=== PATIENT | male | born 1955 | race Caucasian/White ===

== ENCOUNTER 2024-12-30 12:51 | Outpatient (REF) | payer MEDICARE, SELFPAY ==
--- NOTE | ~2024-12-30 | US_ITS ---
EXAMINATION: US RETROPERITONEAL LIMITED (RENAL ONLY) CLINICAL INFORMATION: Stage IV CKD. COMPARISON: None available. TECHNIQUE: Ultrasound along with color Doppler imaging and spectral analysis was performed of the kidneys. FINDINGS: RENAL MEASUREMENTS: Right: 10.9 x 5.5 x 4.4 cm (Sag x AP x TV); there are multiple simple cysts present, largest in the midpole measuring 2.0 x 1.9 x 2.0 cm. There is echogenic renal cortex. No hydronephrosis, mass, or calculus. Left: 12.0 x 5.3 x 5.0 cm (Sag x AP x TV); there are multiple simple cysts present, largest in the upper pole measuring 2.8 x 2.7 x 2.7 cm. There is echogenic renal cortex. No hydronephrosis, mass, or calculus. Spectral Doppler analysis: Right Kidney: -Peak systolic velocity in the proximal right renal artery = 91 cm/s. Normal waveforms. -Peak systolic velocity in the mid right renal artery = 88 cm/s. Normal waveforms. -Peak systolic velocity in the distal right renal artery = 90 cm/s. Normal waveforms. -Patent right renal vein. -Upper pole interlobar artery resistive index of 0.65. -Midpole interlobar artery resistive index of 0.65. -Lower pole interlobar artery resistive index of 0.66. RAR right = unable to calculate. Left Kidney: -Peak systolic velocity in the proximal left renal artery = 104 cm/s. Normal waveforms. -Peak systolic velocity in the mid left renal artery = 71 cm/s. Normal waveforms. -Peak systolic velocity in the distal left renal artery = 33 cm/s. Normal waveforms. -Patent left renal vein. -Upper pole interlobar artery resistive index of 0.67. -Mid pole interlobar artery resistive index of 0.68. -lower pole interlobar artery resistive index of 0.71. RAR left = unable to calculate. Aorta: -Peak systolic velocity = 108 cm/s. US/US renal doppler IMPRESSION: 1. No evidence of renal artery stenosis or abnormal waveforms bilaterally on color/spectral Doppler examination (based on peak systolic velocities and resistive indices). 2. There are bilateral renal cysts. There is echogenic renal cortex in keeping with chronic renal disease. There is no hydronephrosis. Electronically signed by: Durga Pinedo MD 12/30/2024 01:48 PM [facility]
--- NOTE | ~2024-12-30 | US_ITS ---
EXAMINATION: US RETROPERITONEAL LIMITED (RENAL ONLY) CLINICAL INFORMATION: Stage IV CKD. COMPARISON: None available. TECHNIQUE: Ultrasound along with color Doppler imaging and spectral analysis was performed of the kidneys. FINDINGS: RENAL MEASUREMENTS: Right: 10.9 x 5.5 x 4.4 cm (Sag x AP x TV); there are multiple simple cysts present, largest in the midpole measuring 2.0 x 1.9 x 2.0 cm. There is echogenic renal cortex. No hydronephrosis, mass, or calculus. Left: 12.0 x 5.3 x 5.0 cm (Sag x AP x TV); there are multiple simple cysts present, largest in the upper pole measuring 2.8 x 2.7 x 2.7 cm. There is echogenic renal cortex. No hydronephrosis, mass, or calculus. Spectral Doppler analysis: Right Kidney: -Peak systolic velocity in the proximal right renal artery = 91 cm/s. Normal waveforms. -Peak systolic velocity in the mid right renal artery = 88 cm/s. Normal waveforms. -Peak systolic velocity in the distal right renal artery = 90 cm/s. Normal waveforms. -Patent right renal vein. -Upper pole interlobar artery resistive index of 0.65. -Midpole interlobar artery resistive index of 0.65. -Lower pole interlobar artery resistive index of 0.66. RAR right = unable to calculate. Left Kidney: -Peak systolic velocity in the proximal left renal artery = 104 cm/s. Normal waveforms. -Peak systolic velocity in the mid left renal artery = 71 cm/s. Normal waveforms. -Peak systolic velocity in the distal left renal artery = 33 cm/s. Normal waveforms. -Patent left renal vein. -Upper pole interlobar artery resistive index of 0.67. -Mid pole interlobar artery resistive index of 0.68. -lower pole interlobar artery resistive index of 0.71. RAR left = unable to calculate. Aorta: -Peak systolic velocity = 108 cm/s. US/US renal BI IMPRESSION: 1. No evidence of renal artery stenosis or abnormal waveforms bilaterally on color/spectral Doppler examination (based on peak systolic velocities and resistive indices). 2. There are bilateral renal cysts. There is echogenic renal cortex in keeping with chronic renal disease. There is no hydronephrosis. Electronically signed by: Durga Pinedo MD 12/30/2024 01:48 PM [facility] [place] [place]
--- OUTSIDE RECORDS SUMMARY | 2024-12-30 14:59 | XMS_ITS | Clinical Summary ---
Author Organization [facility] Address [address] [place] [address] Phone Care Team Providers Care Properties Supervisor Name Role Phone Joby Olivares MD Primary Care Provider [phone] Allergies Active Allergy Reactions Criticality Noted Date Comments Levofloxacin Other (see comments) 01/30/2021 Medications Cholecalcifero l 50 MCG (1999) capsule Take 1 capsule by mouth 1 (one) time each day Active escitalopram (LEXAPRO) 20 MG tablet Take 10 mg by mouth 1 (one) time each day Active oxyCODONE-acet aminophen (PERCOCET) 5-325 MG per tablet 1 Active citric acid-potassium citrate (POLYCITRA) 1100-334 MG/5ML solution Take 15 mL (30 mEq total) by mouth 2 (two) times a day 2700 mL 2 1 Active Additional Information Patient not taking.Reported on 03/28/2024 Multiple Vitamin (multivitamin) tablet Take 1 tablet by mouth 1 (one) time each day Active carvedilol (COREG) 12.5 MG tablet TAKE 1 TABLET BY MOUTH TWICE A DAY 180 tablet 5 4 Active b complex vitamins capsule Take 1 capsule by mouth 1 (one) time each day Active spironolactone (ALDACTONE) 25 MG tablet Take 25 mg by mouth 1 12/09/19 25 Discontin ued(Alter jossie therapy) amLODIPine (NORVASC) 10 MG tablet TAKE 1 TABLET BY MOUTH EVERY DAY 90 tablet 3 5 12/09/19 25 Discontin ued(Alter jossie therapy) lisinopril 10 MG tablet TAKE 1 TABLET BY MOUTH 1 TIME EACH DAY. 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 Chronic kidney disease, stage 2 (mild) 3 Impaired fasting glycemia 04/30/2022 Chronic fatigue syndrome 08/01/2021 Irritable bowel syndrome 08/01/2021 Pain of knee region 08/01/2021 Stage 3b chronic kidney disease 08/01/2021 Renal osteodystrophy 08/01/2021 Stage 3a chronic kidney disease 01/31/2021 Obese class I 01/30/2021 Renal stone 01/30/2021 Hypertensive heart disease without heart failure 01/30/2021 Essential hypertension 01/30/2021 Chronic kidney disease stage 3 01/30/2021 Hypertensive renal disease 01/30/2021 Encounters Date Type Department Care Team Description 12/08/2024 3:00 PM EDT [facility] Visit [facility] [address] [address] Akbar Dorantes MD Chronic kidney disease, stage 4 (severe) (HCC) (Primary Dx); Renal osteodystrophy 11/03/2024 Refill [facility] [address] [address] Akbar Dorantes MD 10/10/2024 2:45 PM EDT Office Visit [facility] [address] [place] [address] [place] [phone] Akbar Dorantes MD Chronic kidney disease, stage 4 (severe) (HCC) (Primary Dx); Renal osteodystrophy; Hypertensive renal disease from Last 3 Months Immunizations Immunization Administration Dates Next Due DT 08/28/2008 Pfizer SARS-COV-2 12/03/2020,05/21/2020,04/30/19 21 Pneumococcal Polysaccharide 11/21/2001 Td, Unspecified 08/14/2000 Tdap 01/16/2016 Family History Medical History Relation Comments Cancer Father lung Diabetes Father Cancer Mother colon Relation Status Comments Father Mother Social History Tobacco Use Types Packs/Day Years Used Date Smoking Tobacco: Former Cigarettes Q uit: 02/23/1982 Passive Smoke Exposure: Never Smokeless Tobacco: Never Tobacco Cessation:Counseling Given: No Comments:Smoking History Info:Every day Alcohol Use Standard Drinks/Week Comments No 0 (1 standard drink = 0.6 oz pur e alcohol) Sex and Gender Information Value Date Recorded Sex Assigned at Not on file Legal Sex Male 5:12 PM EST Gender Identity Not on file Sexual Orientation Not on file Last Filed Vital Signs Vital Sign Reading Time Taken Comments Blood Pressure 132/84 03/28/2024 3:11 PM EST Pulse 78 08/07/2022 3:58 PM EDT Temperature - - Respiratory Rate - - Oxygen Saturation 96% 08/07/2022 3:58 PM EDT Inhaled Oxygen Concentration - - Weight 108 kg (238 lb) 08/07/2022 3:58 PM EDT Height 190.5 cm (6' 3 ) 02/10/2019 12:00 PM EST Body Mass Index 29.75 02/10/2019 12:00 PM EST Plan of Treatment Upcoming Encounters Date Type Department Care Team (Late st Contact Info) Description 01/02/2025 1:30 PM EST Office [facility] [address] [place] [address] Akbar Dorantes MD [address] [place] [address] Health Maintenance Due Date Last Done Comments Colorectal Cancer Screening: Annual FOBT 2002 Colorectal Cancer Screening: Colonoscopy 2002 Colorectal Cancer Screening: Sigmoidoscopy 2002 Pneumococcal Vaccine: 50+ Ye ars (2 of 2 - PCV) 11/21/2002 11/21/2001 Influenza Vaccine (#1) 2024 Pneumococcal Vaccine: Peds ( 0 to 5 Years) and At-Risk Patients (6 to 49 Years) Discontinued 11/21/2001 Hepatitis B Vaccine Aged Out No longe r eligible based on patient's age to complete this topic Procedures Procedure Name Priority Date/Time Associated Diagnosis Comments PROTIME-INR Routine 12/12/2024 10:53 AM EDT Chronic kidney disease, stage 4 (severe) (HCC) Renal osteodystrophy CBC Routine 12/12/2024 10:53 AM EDT Chronic kidney disease, stage 4 (severe) (HCC) Renal osteodystrophy C4 COMPLEMENT Routine 12/12/2024 10:53 AM EDT Chronic kidney disease, stage 4 (severe) (HCC) Renal osteodystrophy C3 COMPLEMENT Routine 12/12/2024 10:53 AM EDT Chronic kidney disease, stage 4 (severe) (HCC) Renal osteodystrophy JU PANEL Routine 12/12/2024 10:53 AM EDT Chronic kidney disease, stage 4 (severe) (HCC) Renal osteodystrophy HEPATITIS B CORE ANTIBODY, IGM Routine 12/12/2024 10:53 AM EDT Chronic kidney disease, stage 4 (severe) (HCC) Renal osteodystrophy HEPATITIS C ANTIBODY Routine 12/12/2024 10:53 AM EDT Chronic kidney disease, stage 4 (severe) (HCC) Renal osteodystrophy HEPATITIS B SURFACE ANTIGEN Routine 12/12/2024 10:53 AM EDT Chronic kidney disease, stage 4 (severe) (HCC) Renal osteodystrophy HEPATITIS B SURFACE ANTIBODY QUANT Routine 12/12/2024 10:53 AM EDT Chronic kidney disease, stage 4 (severe) (HCC) Renal osteodystrophy KAPPA/LAMBDA FREE LT CHAINS W/RATIO Routine 12/12/2024 10:53 AM EDT Chronic kidney disease, stage 4 (severe) (HCC) Renal osteodystrophy PROTEIN ELECTROPHORESIS, SERUM Routine 12/12/2024 10:53 AM EDT Chronic kidney disease, stage 4 (severe) (HCC) Renal osteodystrophy PROTEIN / CREATININE RATIO, URINE Routine 12/12/2024 10:53 AM EDT Chronic kidney disease, stage 4 (severe) (HCC) Renal osteodystrophy URINE ALBUMIN / CREATININE RATIO Routine 12/12/2024 10:53 AM EDT Chronic kidney disease, stage 4 (severe) (HCC) Renal osteodystrophy URINALYSIS WITH MICROSCOPIC Routine 12/12/2024 10:53 AM EDT Chronic kidney disease, stage 4 (severe) (HCC) Renal osteodystrophy RENAL FUNCTION PANEL Routine 12/12/2024 10:53 AM EDT Chronic kidney disease, stage 4 (severe) (HCC) Renal osteodystrophy MICROSCOPIC EXAMINATION - DO NOT USE Routine 12/12/2024 10:53 AM EDT PROTIME-INR Routine 10/03/2024 12:30 PM EDT Stage 3 chronic kidney disease, not otherwise specified (HCC) RENAL FUNCTION PANEL Routine 10/03/2024 12:30 PM EDT Stage 3 chronic kidney disease, not otherwise specified (HCC) from Last 3 Months Results * Microscopic Examination (12/12/2024 10:53 AM EDT) WBC, Urine None seen 0 - 5 /hpf [facility] RBC, Urine None seen 0 - 2 /hpf [facility] Squamous Epithelial, Urine 0-10 0 - 10 /hpf [facility] Casts None seen None seen /lpf [facility] Bacteria, Urine None seen None seen/Few [facility] 12/12/2024 10:5 3 AM EDT 12/12/2024 Akbar Dorantes MD LAB MICROBIOLOGY - GENERAL OR DERABLES Final Result Performing Organization Address City/[facility]/ZIP Co de Phone Number [employer] [facility] [facility] [address] [place] [address] * Hepatitis C antibody (12/12/2024 10:53 AM EDT) Hep C Virus Ab Non Reactive Non Reactive [facility] [phone] Comment: HCV antibody alone does not differentiate between previously resolved infection and active infection. Equivocal and Reactive HCV antibody results should be followed up with an HCV RNA test to support the diagnosis of active HCV infection. Blood Venous blood / Unknown 12/12/2024 10:53 AM EDT 12/12/2024 Akbar Dorantes MD LAB BLOOD ORDERABLES Final Re sult Performing Organization Address [facility] [[email or web address]] Co de Phone Number [employer] [place] [address], [address] [place] [address] * (ABNORMAL) Protein, Total, Random Urine w/Creatinine (Protein/Creat Ratio) (12/12/2024 10:53 AM EDT) Creatinine, Ur 162.1 Not Estab. mg/dL [facility] Protein, Ur 52.9 Not Estab. mg/dL [facility] Urine Protein/Creati nine Ratio 326(H) 0 - 200 mg/g creat [facility] Urine Urine specimen obtained by clean catch procedure / Unknown 12/12/2024 10:53 AM EDT 12/12/2024 Akbar Dorantes MD LAB URINE ORDERABLES Final Re sult Performing Organization Address City/[facility]/ZIP Co de Phone Number [employer] [facility] [address] [place] [address] * (ABNORMAL) Arkwright/Lambda free LT chains w/ratio, Serum (12/12/2024 10:53 AM EDT) Pathologist [facility] Free Arkwright Lt Chains, S 38.9(H) 3.3 - 19.4 mg/L [facility] Free Lambda Lt Chains, S 65.9(H) 5.7 - 26.3 mg/L [facility] Free Arkwright/Lambda Ratio 0.59 0.26 - 1.65 [facility] Blood Venous blood / Unknown 12/12/2024 10:53 AM EDT 12/12/2024 Akbar Dorantes MD LAB BLOOD ORDERABLES Final Re sult Performing Organization Address [facility] [[email or web address]] Co de Phone Number [facility] [address] [place] [address] * (ABNORMAL) Urine Albumin / Creatinine Ratio (12/12/2024 10:53 AM EDT) Pathologist [facility] Albumin, Urine 204.1 Not Estab. ug/mL [facility] Albumin/Creatin ine Ratio 126(H) 0 - 29 mg/g creat [facility] Comment: Normal: 0 - 29 Moderately increased: 30 - 300 Severely increased: >300 Urine Urine specimen obtained by clean catch procedure / Unknown 12/12/2024 10:53 AM EDT 12/12/2024 Akbar Dorantes MD LAB URINE ORDERABLES Final Re sult Performing Organization Address City/[facility] [[email or web address]] Co de Phone Number [facility] [address] [place] [address] * Hepatitis B core antibody, IgM (12/12/2024 10:53 AM EDT) Pathologist [facility] Hep B Core IgM Negative Negative [facility] [place] Blood Venous blood / Unknown 12/12/2024 10:53 AM EDT 12/12/2024 Akbar Dorantes MD LAB BLOOD ORDERABLES Final Re sult [facility] [address], [address] [place] [address] * (ABNORMAL) Hepatitis B Surface Antibody (12/12/2024 10:53 AM EDT) Hepatitis B Surface Ab <3.5(L) Immunity>1 0 mIU/mL [facility] Comment: Status of Immunity Anti-HBs Level Inconsistent with Immunity 0.0 - 10.0 Consistent with Immunity >10.0 Blood Venous blood / Unknown 12/12/2024 10:53 AM EDT 12/12/2024 Akbar Dorantes MD LAB BLOOD ORDERABLES Final Re sult Performing Organization Address [facility]/ZIP Co de Phone Number [facility] [address], [address] [place] [address] * Hepatitis B Surface Antigen (12/12/2024 10:53 AM EDT) Hep B Surface Ag Negative Negative [facility] [place] Blood Venous blood / Unknown 12/12/2024 10:53 AM EDT 12/12/2024 Akbar Dorantes MD LAB BLOOD ORDERABLES Final Re sult [facility] [address], [address] [place] [address] * (ABNORMAL) Urinalysis with microscopic (12/12/2024 10:53 AM EDT) Pathologist [facility] Specific [place], Urine 1.017 1.005 - 1.030 [facility] [phone] pH Urine 5.5 5.0 - 7.5 [facility] Color, Urine Yellow Yellow [facility] Appearance Urine Clear Clear [facility] WBC Esterase Urine Negative Negative [facility] [phone] Protein, Ur 2+(A) Negative/Tra ce [facility] Glucose, Ur Negative Negative [facility] Ketones, Urine Negative Negative [facility] Blood Urine Negative Negative [facility] Bilirubin Urine Negative Negative [facility] Urobilinogen Urine 1.0 0.2 - 1.0 mg/dL [facility] Nitrite, Urine Negative Negative [facility] Microscopic Examination See below: [facility] Comment:Microscopic was candy cated and was performed. Urine Urine specimen obtained by clean catch procedure / Unknown 12/12/2024 10:53 AM EDT 12/12/2024 us Akbar Dorantes MD LAB URINE ORDERABLES Final Re sult [facility] [address] [place] [address] * Protime-INR (12/12/2024 10:53 AM EDT) Only the most recent of2 resultswithin the time period is included. Pathologist [facility] INR 1.1 0.9 - 1.2 [facility] Comment: Reference interval is for non-anticoagulated patients. Suggested INR therapeutic range for Vitamin K antagonist therapy: Standard Dose (moderate intensity therapeutic range): 2.0 - 3.0 Higher intensity therapeutic range 2.5 - 3.5 Protime 11.0 9.1 - 12.0 sec [facility] Blood Venous blood / Unknown 12/12/2024 10:53 AM EDT 12/12/2024 Akbar Dorantes MD LAB BLOOD ORDERABLES Final Re sult Performing Organization Address City/[facility] [[email or web address]] Co de Phone Number [facility] [address] [place] [address] * CBC (12/12/2024 10:53 AM EDT) WBC 8.3 3.4 - 10.8 x10E3/uL [facility] RBC 4.29 4.14 - 5.80 x10E6/uL [facility] Hemoglobin 13.7 13.0 - 17.7 g/dL [facility] Hematocrit 41.3 37.5 - 51.0 % [facility] MCV 96 79 - 97 fL [facility] MCH 31.9 26.6 - 33.0 pg [facility] MCHC 33.2 31.5 - 35.7 g/dL [facility] RDW 13.9 11.6 - 15.4 % [facility] Platelets 208 150 - 450 x10E3/uL [facility] Blood Venous blood / Unknown 12/12/2024 10:53 AM EDT 12/12/2024 Akbar Dorantes MD LAB BLOOD ORDERABLES Final Re sult [facility] [address] [place] [address] * (ABNORMAL) C3 Complement (12/12/2024 10:53 AM EDT) C3 Complement 173(H) 82 - 167 mg/dL [facility] Blood Venous blood / Unknown 12/12/2024 10:53 AM EDT 12/12/2024 Akbar Dorantes MD LAB BLOOD ORDERABLES Final Re sult Performing Organization Address City/[facility]/ZIP Co de Phone Number [facility] [address] [place] [address] * C4 Complement (12/12/2024 10:53 AM EDT) C4 Complement 26 12 - 38 mg/dL [facility] Blood Venous blood / Unknown 12/12/2024 10:53 AM EDT 12/12/2024 Akbar Dorantes MD LAB BLOOD ORDERABLES Final Re sult Performing Organization Address City/[facility]/ZIP Co de Phone Number [facility] [address] [place] [address] * JU Panel (12/12/2024 10:53 AM EDT) JU Negative Negative [facility] Blood Venous blood / Unknown 12/12/2024 10:53 AM EDT 12/12/2024 us Akbar Dorantes MD LAB BLOOD ORDERABLES Final Re sult [facility] [address] [place] [address] * Protein electrophoresis, serum (12/12/2024 10:53 AM EDT) Total Protein 6.7 6.0 - 8.5 g/dL [facility] Albumin 3.4 2.9 - 4.4 g/dL [facility] Cynbf-2-Aefypkix 0.3 0.0 - 0.4 g/dL [facility] Dinjz-5-Kkseekdq 0.8 0.4 - 1.0 g/dL [facility] Beta Globulin 1.1 0.7 - 1.3 g/dL [facility] Gamma Globulin in Serum 1.0 0.4 - 1.8 g/dL [facility] M-Robert Serum Not Observed Not Observed g/dL [facility] Globulin, Total 3.3 2.2 - 3.9 g/dL [facility] A/G Ratio 1.0 0.7 - 1.7 [facility] Please note Comment [facility] [phone] Comment: Protein electrophoresis scan will follow via computer, mail, or audio production instructor delivery. PDF . [facility] Blood Venous blood / Unknown 12/12/2024 10:53 AM EDT 12/12/2024 us Akbar Dorantes MD LAB BLOOD ORDERABLES Final Re sult [facility] [address] [place] [address] * (ABNORMAL) Renal Function Panel (12/12/2024 10:53 AM EDT) Only the most recent of2 resultswithin the time period is included. Glucose 168(H) 70 - 99 mg/dL [facility] BUN 31(H) 8 - 27 mg/dL [facility] Creatinine 1.95(H) 0.76 - 1.27 mg/dL [facility] eGFR CKD-EPI CR 2020 36(L) >59 mL/min/1.7 3 [facility] BUN/Creatinine Ratio 16 10 - 24 [facility] Sodium 140 134 - 144 mmol/L [facility] Potassium 3.4(L) 3.5 - 5.2 mmol/L [facility] Chloride 100 96 - 106 mmol/L [facility] Bicarbonate (CO2) 23 20 - 29 mmol/L [facility] Calcium 9.1 8.6 - 10.2 mg/dL [facility] Albumin 4.1 3.8 - 4.8 g/dL [facility] Phosphorus 1.8(L) 2.8 - 4.1 mg/dL [facility] Blood Venous blood / Unknown 12/12/2024 10:53 AM EDT 12/12/2024 us Akbar Dorantes MD LAB BLOOD ORDERABLES Final Re sult [facility] [address] [place] [address] from Last 3 Months Insurance Medicare [facility] Medicare [facility] Care Teams Properties Supervisor Relationship Specialty Start Date End Date Joby Olivares MD [address] [place] [phone] PCP - General 03/05/20
== END 2024-12-30 12:52 | disposition home or self-care (01) ==
LOC: HO.US 12:51
PROVIDERS: Visit Provider Internal Medicine Nephrology
DX: I12.9 Hypertensive chronic kidney disease with stage 1 through stage 4 chronic kidney disease, or unspecified chronic kidney disease (principal); N18.4 Chronic kidney disease, stage 4 (severe); N25.0 Renal osteodystrophy
CPT/HCPCS: 76775; 93975

== ENCOUNTER → 2024-12-30 12:59 | Outpatient (BNV) | payer MEDICARE, SELFPAY | PROVIDERS: Visit Provider Radiology Diagnostic Radiology | DX: N18.4 Chronic kidney disease, stage 4 (severe) (principal); N28.1 Cyst of kidney, acquired | CPT/HCPCS: 76775; 93975 ==